=== PATIENT | female | born 1955 | race Caucasian/White ===

== ENCOUNTER 2017-02-12 07:24 | Day surgery (SDC) | payer OTHER ==
[2017-02-12] MEDS ORDERED: DIPRIVAN 200 MG/20 ML IV ONE (08:00)
[2017-02-12] MEDS ORDERED: Ketamine HCl 50 MG/ML IJ ONE (08:00)
[2017-02-12] MEDS ORDERED: Lactated Ringers 1,000 ML IV SCH (08:00)
--- NOTE | 2017-02-12 11:38 | HP ---
DATE: 02/12/17 ADMISSION DIAGNOSIS: 1. SCREENING. ANTICIPATED PROCEDURE: 1. Colonoscopy. HISTORY OF PRESENT ILLNESS: Patient is 61 years old. She had one 10 or 12 years ago. She does have an aunt with colon cancer. PAST MEDICAL HISTORY: ALLERGIES: NONE. CURRENT MEDICATIONS: Lysine. SURGERIES: Left thumb, right palm, left hand. SOCIAL HISTORY: Negative. FAMILY HISTORY: Negative. REVIEW OF SYSTEMS: Negative. PHYSICAL EXAMINATION: Vital signs normal. CHEST: Clear. COR: Regular. ABDOMEN: No palpable organomegaly or mass. IMPRESSION: 1. PATIENT PRESENTS FOR 10-12 YEAR SCREENING. PLAN: Colonoscopy.
[2017-02-12 13:34] VITALS: O2SAT 98
[2017-02-12 13:50] VITALS: BP 132/72; PULSE 70
--- NOTE | 2017-02-12 13:56 | OP ---
SURGERY DATE/TIME: 02/12/2017 1035 PREOPERATIVE DIAGNOSIS: Screening. POSTOPERATIVE DIAGNOSIS: Normal. PROCEDURE: Colonoscopy complete to cecum. SURGEON: Boby Bernard M.D. ANESTHESIA: MAC sedation. COMPLICATIONS: None. CONDITION: Stable. INDICATION: A patient requiring screening. DESCRIPTION OF PROCEDURE: Taken to the endoscopy suite. MAC sedation provided. The scope introduced. The scope advanced to the cecum. Ileocecal valve, base of the cecum, appendiceal orifice all normal. Ascending, hepatic, transverse, splenic, descending, sigmoid, rectum and anus were normal. IMPRESSION: Normal examination. PLAN: Follow up in 10 years.
== END 2017-02-12 12:30 | disposition home or self-care (01) ==
LOC: SDC 07:24
PROVIDERS: ATTEND Surgery
PROC: 0DJD8ZZ Inspection of Lower Intestinal Tract, Via Natural or Artificial Opening Endoscopic (ICD-10-PCS; principal; 2017-02-12)
DX: Z12.11 Encounter for screening for malignant neoplasm of colon (principal); Z80.0 Family history of malignant neoplasm of digestive organs
CPT/HCPCS: 00810; J2704